=== PATIENT | male | born 1955 | race African-American/Black ===

== ENCOUNTER → 2017-12-10 | Outpatient (CLI) | payer MEDICARE, OTHER ==
[~2017-12-10] MED LIST: IOPAMIDOL 370 MG/ML 200 ML INFUS..BTL INJ ONE; SODIUM CHLORIDE 0.9% 50ML 50 ML ONE
[2017-12-10 11:12] LABS: BLOOD UREA NITROGEN 10 mg/dL (7-26); BUN/CREATININE RATIO 10 (6-25); CREATININE, SERUM 0.97 mg/dL (0.72-1.25); EST GLOMERULAR FILTRATION RATE > 60 ML/MIN (60-)
--- NOTE | 2017-12-10 14:00 | Diagnostic Imaging Report ---
PROCEDURE:CT PELVIS WITH CONTRAST COMPARISON:None. INDICATIONS:PENILE PAIN, POSSIBLE URETHRAL STRICTURE TECHNIQUE:Spiral CT images of the pelvis were performed from the iliac crests to the mid thighs after the intravenous administration of 100 cc of Isovue 370. Coronal and sagittal reformatted images were also obtained. FINDINGS: PELVIC ORGANS:Moderate circumferential bladder wall thickening. No focal lesions. Peripherally located calcified plaques in the mid to distal portion of the right corpus cavernosum (series 2, images 41-45 and sagittal images 57-60). Prostate is unremarkable. Seminal vesicles are unremarkable. PELVIC NODES:No distal retroperitoneal, pelvic or inguinal adenopathy. GI TRACT: Visualized bowel shows no dilation or obstruction. VESSELS:Distal aorta and bilateral iliac vessels are patent. BONES:No aggressive lytic lesion. Focal 7-8mm sclerotic lesions in the right femoral head and left acetabulum (series 2, images 37 and 36), have a nonaggressive appearance and likely represent bone islands. SOFT TISSUES:Unremarkable.. CONCLUSION: 1. Moderate circumferential bladder wall thickening. This may be secondary to bladder obstruction, if there is a urethral stricture. 2. Unable to assess for urethral stricture, as no contrast is noted in the urethra. Recommend urethrogram if there is clinical concern for stricture. 3. Peripherally located calcified plaques in the mid to distal portion of the right corpus cavernosa. Aly Mckeon M.D. Dictated by: Aly Mckeon M.D. on 12/10/2017 at 14:05 Electronically approved by: Aly Mckeon M.D. on 12/10/2017 at 14:05
== END ==
LOC: CT 10:19 → EDBD 11:00
PROVIDERS: ATTEND Urology
DX: N35.9 Urethral stricture, unspecified (principal); N48.89 Other specified disorders of penis
CPT/HCPCS: 36415; 72193; 82565; 84520; Q9967